=== PATIENT | female | born 1955 | race Caucasian/White ===

== ENCOUNTER 2021-05-30 12:26 | Emergency (ER) | payer MEDICARE, BC ==
[~2021-05-30] VITALS: Ht 162.6 cm; Wt 100.0 kg
[2021-05-30 13:05] VITALS: BP 133/88
[2021-05-30] MEDS ORDERED: triamcinolone acetonide 40mg/ml inj IM ONE (13:40)
[2021-05-30] MEDS ORDERED: EPIN0.3P3 IM (13:41)
== END 2021-05-30 14:14 | disposition home or self-care (01) ==
LOC: ER 12:27
DX: L29.9 Pruritus, unspecified (principal); T39.8X5A Adverse effect of other nonopioid analgesics and antipyretics, not elsewhere classified, initial encounter; G43.909 Migraine, unspecified, not intractable, without status migrainosus; I10 Essential (primary) hypertension; E11.9 Type 2 diabetes mellitus without complications; Z85.9 Personal history of malignant neoplasm, unspecified; Z88.2 Allergy status to sulfonamides; Z88.8 Allergy status to other drugs, medicaments and biological substances; Y92.89 Other specified places as the place of occurrence of the external cause
CPT/HCPCS: 96372; 99283; J3301

== ENCOUNTER 2023-11-15 16:11 | Emergency (ER) | payer MEDICARE ==
[~2023-11-15] VITALS: Ht 160 cm; Wt 100.3 kg
[~2023-11-15 16:11] MED LIST: EPIN0.3P3 IM
[2023-11-15] MEDS ORDERED: ACET1TAB96 PO (17:53)
[2023-11-15] MEDS ORDERED: acetaminophen w/codeine (30MG) #3 tablet PO ONE (17:55)
[2023-11-15 18:24] VITALS: BP 114/73; PULSE 79; RESP 18; TEMP 98.2; O2SAT 100
[2023-11-16] MEDS ORDERED: HYDR-3965 PO (11:48)
== END 2023-11-15 18:27 | disposition home or self-care (01) ==
LOC: ER 16:11
DX: S42.291A Other displaced fracture of upper end of right humerus, initial encounter for closed fracture (principal); S62.111A Displaced fracture of triquetrum [cuneiform] bone, right wrist, initial encounter for closed fracture; G43.909 Migraine, unspecified, not intractable, without status migrainosus; I10 Essential (primary) hypertension; E11.9 Type 2 diabetes mellitus without complications; Z88.8 Allergy status to other drugs, medicaments and biological substances; Z88.2 Allergy status to sulfonamides; Z79.1 Long term (current) use of non-steroidal anti-inflammatories (NSAID); Z79.899 Other long term (current) drug therapy; W19.XXXA Unspecified fall, initial encounter; Y93.89 Activity, other specified; Y92.89 Other specified places as the place of occurrence of the external cause; Y99.8 Other external cause status
CPT/HCPCS: 29125; 73030; 73060; 73080; 73110; 99284; A4565

== ENCOUNTER 2024-06-24 07:43 | Emergency (ER) | payer MEDICARE ==
[~2024-06-24] VITALS: Ht 152.4 cm; Wt 106.8 kg
[~2024-06-24 07:43] MED LIST changes: +EMPA10TA PO; -EPIN0.3P3 IM; +GABA300C PO; +HYDR12.55 PO; +LOSA50TA64 PO; +MELO-102 PO; +METF-438 PO; +SIMV-42 PO; +SITA100T11 PO; +TIZA-189 PO
[2024-06-24] MEDS ORDERED: HYDR-3965 PO (08:31)
[2024-06-24] MEDS: HYDROcodone/acetaminophen 5mg/325mg tablet PO ONE (08:41)
[2024-06-24 09:16] VITALS: BP 120/70; PULSE 74; RESP 16; TEMP 97.9; O2SAT 98
== END 2024-06-24 09:21 | disposition home or self-care (01) ==
LOC: ER 07:44
DX: S82.831A Other fracture of upper and lower end of right fibula, initial encounter for closed fracture (principal); G43.909 Migraine, unspecified, not intractable, without status migrainosus; I10 Essential (primary) hypertension; E11.9 Type 2 diabetes mellitus without complications; Z88.8 Allergy status to other drugs, medicaments and biological substances; Z88.2 Allergy status to sulfonamides; Z79.899 Other long term (current) drug therapy; Z79.84 Long term (current) use of oral hypoglycemic drugs; Z79.2 Long term (current) use of antibiotics; W19.XXXA Unspecified fall, initial encounter; Y93.89 Activity, other specified; Y92.89 Other specified places as the place of occurrence of the external cause; Y99.8 Other external cause status
CPT/HCPCS: 29515; 73610; 99283

== ENCOUNTER 2025-05-28 07:10 | Emergency (ER) | payer MEDICARE ==
[~2025-05-28] VITALS: Ht 162.6 cm; Wt 96.0 kg
[2025-05-28 07:57] LABS: LEUKOCYTE ESTERASE ,URINE TRACE (Neg); NITRITES, URINE POSITIVE (Neg); OCCULT BLOOD,URINE NEGATIVE (Neg)
[2025-05-28 08:02] LABS: UA COLLECTION TYPE CLN CATCH MIDSTREAM
[2025-05-28 08:10] LABS: SQUAMOUS EPITHELIAL CELL,UR MODERATE /LPF (FEW); WBC CLUMPS,URINE FEW /HPF (NEGATIVE)
--- NOTE | 2025-05-28 08:21 | Physician Documentation ---
History of Present Illness ~ Chief Complaint: Flank Pain Stated Complaint: BACK PAIN AND URINARY COMPLICATIONS Time Seen by MD: 08:03 Primary Medical Doctor: [facility] Mode of Arrival: Ambulatory HPI 70-year-old female presenting with lower back pain that has been ongoing for the past couple of days. She states that it is bilateral and does not radiate. It is a throbbing and pulling type of pain that has been constant and is not improved or worsened by anything in particular. She also endorses some foul- smelling urine that has been ongoing during this time. She denies any burning or pain on urination, nausea, vomiting or any other associated symptoms. She states that she gets frequent urinary tract infections and they typically pre sent in this manner. Medication Reconciliation Allergies: Coded Allergies: ubrogepant (Verified Allergy, Severe, ANAPHYLAXIS, 05/28/25) Sulfa (Sulfonamide Antibiotics) (Verified Allergy, Unknown, 05/28/25) rizatriptan (Verified Allergy, Unknown, 05/28/25) Scheduled Empagliflozin (Jardiance), 1 TAB PO DAILY Hydrochlorothiazide (Hydrochlorothiazide), 12.5 MG PO DAILY, (Reported) Losartan Potassium (Losartan Potassium), 1 TAB PO DAILY, (Reported) Meloxicam (Meloxicam), 1 TAB PO DAILY, (Reported) Metformin HCl (Metformin HCl), 1 TAB PO BID, (Reported) Simvastatin* (Zocor*), 1 TAB PO HS, (Reported) Sitagliptin Phosphate (Januvia), 1 TAB PO DAILY, (Reported) Tizanidine Hcl (Zanaflex), 1 TAB PO TID, (Reported) Scheduled PRN Gabapentin (Neurontin), 1 CAP PO Q8H PRN for pain, (Reported) Past Medical History Past Medical History: Migraine, Hypertension, Diabetes, *CANCER* Past Surgical History: noncontributory Other Past Family History: Father [place] at 49 Alcohol Use: None Drug Use: none Lives with: Family Lives In: Home Review of Systems All Other Systems at this time: Reviewed and Negative Physical Exam Vital Signs: Temperature: 98.4, Source: Oral, Heart Rate: 94, Respiratory Rate: 16, BP: 148/95, Pulse Oximetry: 95, Weight: 96.050 Oxygen Flow Rate: 0 Physical Exam I have reviewed the triage vitals. CONST: Well developed and well nourished. In no acute distress HENT: Head Atraumatic EYES: Pupils are equal, round and reactive to light. Normal conjunctiva NECK: Normal range of motion. Supple. CARDIO: Normal rate and regular rhythm. No murmurs, rubs, or gallops. S1, S2. PULM/CHEST: No respiratory distress. Lungs clear to auscultation. No wheeze ABD: Soft and nontender. Nondistended. Bowel sounds normal. No guarding. : Bilateral CVA tenderness to palpation MSK: No edema. No deformity. NEURO: Alert and oriented to person, place and time. Moving all extremities SKIN: Warm and dry. PSYCH: Normal mood and affect. Good eye contact. Progress Results/Orders Results/Orders Orders - SHAY CRANE MD Cult Urine + [address] (05/28/25 08:10) Completed Orders - SHAY CRANE MD Ua W/Microscopic, Cult If Ind (05/28/25 07:22) Cbc/Diff (05/28/25 08:12) BMP (05/28/25 08:12) Vital Signs 05/28/25 05/28/25 05/28/25 07:13 07:57 09:18 Temp 97.4 98.3 Pulse 89 86 Resp 18 16 B/P (MAP) 142/87 154/90 (111) Pulse Ox 96 95 O2 Flow Rate 0 Laboratory Tests Test 05/28/25 07:22 05/28/25 08:38 Urine Specimen Description Cln catch midstream Urine Color Yellow Urine Clarity Cloudy Urine pH 6.0 Urine Specific [place] 1.010 Urine Protein Negative Urine Glucose (UA) Negative Urine Ketones Negative Urine Occult Blood Negative Urine Nitrite Positive H Urine Bilirubin Negative Urine Urobilinogen 0.2 Urine Leukocyte Esterase Trace H Urine RBC 0-2 Urine WBC 5-10 H Urine WBC Clumps Few Urine Squamous Epithelial Cells Moderate Urine Bacteria 3+ Urine Culture Indicated Indicated Volume Urine Centrifuged 10 ml Urine Comment White Blood Count 11.4 H Red Blood Count 4.35 Hemoglobin 12.3 Hematocrit 37.5 Mean Corpuscular Volume 86.1 Mean Corpuscular Hemoglobin 28.3 Mean Corpuscular Hemoglobin Concent 32.9 L Red Cell Distribution Width 14.0 Platelet Count 332 Mean Platelet Volume 8.1 Neutrophils (%) (Auto) 48.0 Lymphocytes (%) (Auto) 31.0 Monocytes (%) (Auto) 9.7 Eosinophils (%) (Auto) 10.6 H Basophils (%) (Auto) 0.7 Neutrophils # (Auto) 5.5 Lymphocytes # (Auto) 3.5 Monocytes # (Auto) 1.1 H Eosinophils # (Auto) 1.2 H Basophils # (Auto) 0.1 CBC Comment Sodium Level 136 Potassium Level 4.4 Chloride Level 100 Carbon Dioxide Level 26.9 Anion Gap 9 Blood Urea Nitrogen 41 H Creatinine 1.98 H Estimated GFR/1.73 m2 25 BUN/Creatinine Ratio 20.7 H Glucose Level 150 H Calcium Level 9.4 Albumin 3.4 Chemistry Comments Microbiology Date/Time Source Procedure Growth Status 05/28/25 08:10 Urine Clean Catch Midstream Urine Culture - Preliminary Culture received. Resulted Medical Decision Making Additional Comment 70-year-old female presenting with a urinary tract infection. Urinalysis is suggestive of this. Her lab workup does indicate elevated BUN and creatinine however this is at her baseline as she has some degree of chronic kidney disease. She had a very minimally elevated white count of 11.4 but the patient is not septic and her vital signs are normal. At this point in time I believe we can treat this as an outpatient as the patient is stable and safe for discharge home. Patient was prescribed cephalexin for seven days. Advised to take the medication as prescribed and drink plenty of fluids. Follow up with PCP in the next 2-3 days. Return to ED with any acutely worsening symptoms. Departure Disposition: 01 HOME / SELF CARE / HOMELESS Impression: Primary Impression: Acute urinary tract infection Discharge Instructions: Urinary Tract Infection, Adult Additional Instructions: Please take medication as prescribed. Please drink plenty of fluids and monitor her symptoms for improvement and resolution. Follow up with primary care physician in the next 2-3 days. Return to the ED with any acutely worsening symptoms. Referrals: NO PRIMARY CARE PROVIDER (PCP) Prescriptions Cephalexin (Cephalexin) 500 Mg Capsule 1 CAP PO Q12H for 7 Days, #14 CAP Prov: SHAY CRANE MD 05/28/25 Signature Scribe Signature: 1 Attestation: 1 SHAY CRANE MD May 28, 2025 08:21
[2025-05-28 08:50] LABS: MEAN PLATELET VOLUME 8.1 FL (7.4-10.4); RED CELL DISTRIBUTION WIDTH 14.0 % (11.5-14.5)
[2025-05-28 08:55] LABS: CREATININE 1.98 MG/DL (0.40-0.90); TOTAL CARBON DIOXIDE 26.9 MMOL/L (24-32); eCRCL 23 ML/MIN; eGFR 25 ML/MIN
[2025-05-28 09:18] VITALS: TEMP 98.3
[2025-05-28] MEDS ORDERED: CEPH500C2 PO (09:41)
[2025-05-28 09:45] VITALS: BP 154/90; PULSE 84; RESP 16; O2SAT 98
== END 2025-05-28 09:54 | disposition home or self-care (01) ==
LOC: ER 07:10
DX: N39.0 Urinary tract infection, site not specified (principal); E11.9 Type 2 diabetes mellitus without complications; G43.909 Migraine, unspecified, not intractable, without status migrainosus; I10 Essential (primary) hypertension; Z88.2 Allergy status to sulfonamides; Z88.8 Allergy status to other drugs, medicaments and biological substances
CPT/HCPCS: 36415; 80048; 81001; 85025; 87088; 87186; 99283